=== PATIENT | male | born 1950 ===

== ENCOUNTER 2018-04-23 20:58 | Emergency (ER) | payer MEDICARE, OTHER ==
[2018-04-23 21:32] VITALS: BP 149/73; PULSE 71; RESP 18; TEMP 97; O2SAT 100
[2018-04-23 22:08] LABS: HEMATOCRIT 32 % (39-53); HEMOGLOBIN 10.4 gm/dl (13.5-17.7); MEAN CORPUSCULAR HEMOGLOBIN 30.6 pg (27.0-32.0); MEAN CORPUSCULAR HGB CONC 32.8 gm/dl (32.0-36.0); MEAN CORPUSCULAR VOLUME 93 fL (80-100)
[2018-04-23 22:11] LABS: CALCIUM 8.4 mg/dl (8.5-10.1); CARBON DIOXIDE 27.6 mEq/L (21-32); CREATININE 7.37 mg/dl (0.80-1.30); POTASSIUM 4.9 mMol/L (3.5-5.1)
[2018-04-23 22:22] LABS: BAND NEUTROPHILS % (MANUAL) 5 %; BASOPHILS % (MANUAL) 0 % (0-3); EOSINOPHILS % (MANUAL) 1 % (0-9); LYMPHOCYTES % (MANUAL) 10 % (10-50); MONOCYTES % (MANUAL) 11 % (0-12); NEUTROPHILS % (MANUAL) 73 % (37-80)
[2018-04-23 22:23] LABS: ANISOCYTOSIS SLIGHT AMT
== END 2018-04-23 22:26 | disposition home or self-care (01) | DRG 392 ==
LOC: ED 20:58
DX: K52.9 Noninfective gastroenteritis and colitis, unspecified (principal); R53.81 Other malaise; N19 Unspecified kidney failure; Z99.2 Dependence on renal dialysis
CPT/HCPCS: 36415; 80048; 85007; 85027; 99282